=== PATIENT | female | born 1970 | race Caucasian/White ===

== ENCOUNTER 2017-05-13 02:00 | Emergency (ER) | payer MEDICAID ==
[~2017-05-13] VITALS: Ht 154.9 cm; Wt 63.5 kg
[2017-05-13 02:08] VITALS: BP 155/93
--- NOTE | 2017-05-13 06:39 | NUR ---
PATIENT LEFT WITHOUT BEING SEEN BY DR. MANCUSO. NO FURTHER CARE PROVIDED FOR PATIENT.
== END 2017-05-13 06:39 | disposition left against medical advice (07) ==
LOC: MED 02:00
DX: R51 Headache (principal); Z53.21 Procedure and treatment not carried out due to patient leaving prior to being seen by health care provider